=== PATIENT | female | born 1945 | race Caucasian/White ===

== ENCOUNTER 2017-06-22 21:30 | Inpatient (IN) | payer OTHER ==
[~2017-06-22] VITALS: Ht 154.9 cm; Wt 72.0 kg
[~2017-06-22 21:30] MED LIST: ASPIR-LOW81 MG PO; AUGMENTIN875 MG PO; BENADRYL25 MG PO; BENADRYL50 MG PO; CELEXA40 MG PO; CEPHALEXIN500 MG PO; CITALOPRAM HBR40 MG PO; CLARITIN,ALAVAR10 MG PO; DESYREL100 MG PO; EAR DROPS15 ML LEFT EAR; ELAVIL50 MG PO; FLOXIN OTIC SOLN5 ML LEFT EAR; FLUTICASONE PRO16 GM BOTH NARES; HYDROCHLOROTHIA25 MG PO; HYDROCODON-ACE1 EAC7 PO; LORTAB 5-325 M1 EACH PO; METFORMIN HCL500 MG PO; NEURONTIN300 MG PO; NICOTINE PATCH1 EAC1 TD; OMEPRAZOLE20 MG PO; PANTOPRAZOLE SO40 MG PO; PEPCID20 MG PO; PEPCID40 MG PO; PERCOCET 5/31 TABLET PO; PRAVACHOL80 MG PO; PRAVASTATIN SOD40 MG PO; PREDNISONE10 MG PO; PROAIR HFA8.5 GM IH; RANITIDINE HCL150 M1 PO; SERTRALINE HCL100 MG PO; TENORMIN25 MG PO; TYLENOL WITH C1 EACH PO; ULTRAM50 MG PO; ZESTORETIC 20-1 EAC1 PO; ZOFRAN4 MG PO
[2017-06-22 22:50] LABS: BASOPHIL COUNT 0.1 K/uL (0-0.1); EOSINOPHIL (%) 5.4 % (0-5); EOSINOPHIL COUNT 0.4 K/uL (0-0.3); HEMATOCRIT 44.8 % (36.0-46.0); IMMATURE GRANULOCYTE (%) 0.4 % (0.0-0.7); LYMPHOCYTE COUNT 1.4 K/uL (1.0-2.8); MCHC 33.7 G/DL (30.0-36.0); MEAN PLAT.VOLUME 10.2 uM^3 (9.5-12.4); MONOCYTE (%) 11.7 % (3-12); MONOCYTE COUNT 0.9 K/uL (0-0.8); NEUTROPHIL (%) 63.4 % (45-76); PLATELET COUNT 239 K/uL (156-360); RBC DIS.WIDTH-CV 13.6 % (11.8-14.6); RBC DIS.WIDTH-SD 42.9 % (39-53); RED BLOOD COUNT 5.21 M/uL (3.80-5.20); WHITE BLOOD COUNT 7.8 K/uL (4.1-10.2)
[2017-06-22 23:01] LABS: CHLORIDE 102 mEq/L (99-109); SODIUM 137 mEq/L (136-147)
[2017-06-22 23:03] LABS: GLUCOSE 117 mg/dL (70-99)
[2017-06-22 23:04] LABS: ANION GAP 10 MEQ/L (2-14)
[2017-06-22 23:07] LABS: GFR ESTIMATE (CALCULATED) > 59 mL/min/; UREA NITROGEN (BUN) 10 mg/dL (9-23)
[2017-06-22 23:12] LABS: TROP-I INTERPRETATION NEGATIVE; TROPONIN-I < 0.01 ng/mL (0.0-0.30)
[2017-06-23] MEDS ORDERED: LEVOFLOXACIN500 MG PO (01:57)
[2017-06-23] MEDS ORDERED: METFORMIN HCL500 MG PO (01:58)
[2017-06-23] MEDS ORDERED: TRAZODONE HCL150 MG PO (02:00)
[2017-06-23] MEDS ORDERED: ATENOLOL25 MG PO (02:00)
[2017-06-23 05:05] LABS: TROP-I INTERPRETATION NEGATIVE; TROPONIN-I < 0.01 ng/mL (0.0-0.30)
[2017-06-23 05:59] LABS: HDL CHOLESTEROL 47 MG/DL (Desirable>=50); LDL CHOLESTEROL 91 mg/dL (Desirable<100); NON-HDL CHOLESTEROL 108 mg/dL (Desirable<160); TOTAL CHOLESTEROL 155 mg/dL (Desirable<200); TRIGLYCERIDES 84 MG/DL (Normal: <150)
[2017-06-23 06:47] LABS: Estimated Average Glucose 131 mg/dL (70-123); HEMOGLOBIN A1c (GLYCOHEMOGLOB) 6.2 % HGB (Below 5.7)
[2017-06-23 07:41] VITALS: BP 172/64
[2017-06-23 08:39] LABS: POINT-OF-CARE METER ID UU13113717
[2017-06-23 08:57] LABS: HEMATOCRIT 40.7 % (36.0-46.0); MCH 28.5 PG (29.0-34.0); MCHC 32.9 G/DL (30.0-36.0); MCV 86.6 FL (83-99); MEAN PLAT.VOLUME 9.8 uM^3 (9.5-12.4); PLATELET COUNT 181 K/uL (156-360); RBC DIS.WIDTH-CV 13.7 % (11.8-14.6); RBC DIS.WIDTH-SD 43.8 % (39-53); WHITE BLOOD COUNT 4.4 K/uL (4.1-10.2)
[2017-06-23 09:17] LABS: TROP-I INTERPRETATION NEGATIVE; TROPONIN-I < 0.01 ng/mL (0.0-0.30)
[2017-06-23 11:32] VITALS: BP 160/74
[2017-06-23 12:24] LABS: POINT-OF-CARE METER ID UU14188625
[2017-06-23 15:21] VITALS: BP 148/65
[2017-06-23 16:40] LABS: POINT-OF-CARE METER ID UU14174225
[2017-06-23 19:34] VITALS: BP 144/66
[2017-06-23 20:46] LABS: POINT-OF-CARE METER ID UU13113717
[2017-06-23 23:59] VITALS: BP 124/59
[2017-06-24 04:22] VITALS: BP 94/51
[2017-06-24 06:45] VITALS: BP 129/63
[2017-06-24 06:48] LABS: ANION GAP 8 MEQ/L (2-14); CHLORIDE 103 MEQ/L (99-109); GFR ESTIMATE (CALCULATED) 58 mL/min/; GLUCOSE 100 mg/dL (70-99); SAMPLE HEMOLYSIS CHECK 0; SAMPLE ICTERIC CHECK 0; SAMPLE LIPEMIA CHECK 0; SODIUM 139 MEQ/L (136-147); UREA NITROGEN (BUN) 15 mg/dL (9-23)
[2017-06-24 10:55] VITALS: BP 126/54
[2017-06-24 12:35] LABS: POINT-OF-CARE METER ID UU14174225
[2017-06-24] MEDS ORDERED: NICOTINE PATCH1 EAC1 TD (15:39)
[2017-06-24] MEDS ORDERED: ASPIR-LOW81 MG PO (15:40)
[2017-06-24] MEDS ORDERED: SPIRIVA18 MCG IH (15:42)
[2017-06-24] MEDS ORDERED: SEREVENT DISKU50 MCG IH (15:43)
[2017-06-24 16:03] VITALS: BP 129/61
[2017-06-24] MEDS ORDERED: NEURONTIN300 MG PO (17:19)
== END 2017-06-24 17:22 | disposition home or self-care (01) | DRG 69 ==
LOC: EME 21:30 → EDOF 06-23 02:19 → ENRESERV 06-23 02:20 → EDOF 06-23 03:01 → 5SOUTH 06-23 03:01 → EDOF 06-23 03:01 → ENRESERV 06-23 03:04 → 5SOUTH 06-23 06:05 → ENRESERV 06-23 06:07 → EDOF 06-23 06:08 → 5SOUTH 06-23 06:08 → ENRESERV 06-23 06:10 → 5SOUTH 06-23 07:15
PROVIDERS: Emergency Medicine; Family Medicine; Hospitalist
DX: G45.9 Transient cerebral ischemic attack, unspecified (principal); J44.1 Chronic obstructive pulmonary disease with (acute) exacerbation; F17.200 Nicotine dependence, unspecified, uncomplicated; E78.5 Hyperlipidemia, unspecified; Z83.3 Family history of diabetes mellitus; Z82.49 Family history of ischemic heart disease and other diseases of the circulatory system; I65.23 Occlusion and stenosis of bilateral carotid arteries; E11.51 Type 2 diabetes mellitus with diabetic peripheral angiopathy without gangrene; G43.909 Migraine, unspecified, not intractable, without status migrainosus; Z91.14 Patient's other noncompliance with medication regimen; Z91.19 Patient's noncompliance with other medical treatment and regimen; R73.02 Impaired glucose tolerance (oral); I10 Essential (primary) hypertension; Z79.82 Long term (current) use of aspirin; I27.20 Pulmonary hypertension, unspecified; Z79.84 Long term (current) use of oral hypoglycemic drugs; Z88.8 Allergy status to other drugs, medicaments and biological substances; Z79.899 Other long term (current) drug therapy
CPT/HCPCS: 70450; 70498; 71020; 74000; 80048; 80061; 82948; 83036; 83880; 84484; 85025; 85027; 93005; 93306; 93880; 94640; 94640 76; 94799; 99202; 99281; 99285; J0456; J0696; J1644; J1815; J7030; J7050

== ENCOUNTER 2017-09-23 13:35 | Emergency (ER) | payer OTHER ==
[~2017-09-23] VITALS: Ht 154.9 cm; Wt 74.0 kg
[~2017-09-23 13:35] MED LIST changes: +ATENOLOL25 MG PO; +LEVOFLOXACIN500 MG PO; +SEREVENT DISKU50 MCG IH; +SPIRIVA18 MCG IH; +TRAZODONE HCL150 MG PO
[2017-09-23] MEDS ORDERED: LOTRISONE15 GM TP (16:20)
[2017-09-23] MEDS ORDERED: ATARAX,VISTARIL25 MG PO (16:20)
[2017-09-23] MEDS ORDERED: KEFLEX500 MG PO (16:20)
[2017-09-23] MEDS ORDERED: NYAMYC60 GM TP (16:20)
[2017-09-23 16:47] VITALS: BP 214/82
== END 2017-09-23 16:58 | disposition home or self-care (01) ==
LOC: EME 13:35
DX: L30.9 Dermatitis, unspecified (principal); L03.113 Cellulitis of right upper limb; I10 Essential (primary) hypertension; E78.5 Hyperlipidemia, unspecified; J44.9 Chronic obstructive pulmonary disease, unspecified; Z79.84 Long term (current) use of oral hypoglycemic drugs; F17.200 Nicotine dependence, unspecified, uncomplicated
CPT/HCPCS: 99281; 99284